=== PATIENT | male | born 1990 | race Caucasian/White ===

== ENCOUNTER 2016-12-12 11:51 | Emergency (ER) | payer OTHER ==
[2016-12-12] MEDS ORDERED: ONDANSETRON PF 4 MG/2 ML VIAL. IV ONE (12:45)
[2016-12-12] MEDS ORDERED: FAMOTIDINE 20 MG TABLET PO ONE (12:45)
[2016-12-12 12:48] LABS: BASO % 0 % (0-3); EOS % 0 % (0-3); HEMATOCRIT 45.5 % (39.0-53.0); HEMOGLOBIN 15.6 g/dL (13.0-17.5); LYMPH % 10 % (24-48); MEAN CORPUSCULAR HEMOGLOBIN 29 pg (25-35); MEAN CORPUSCULAR HGB CONC 34 g/dL (31-37); MEAN CORPUSCULAR VOLUME 84 fL (79-100); MONO # 0.5 x10^3/uL (0.0-1.1); MONO % 6 % (0-9); NEUT # 7.9 x10^3uL (1.8-7.7); NEUT % 84 % (31-73); PLATELET COUNT 272 x10^3/uL (140-400); RED BLOOD COUNT 5.43 x10^6/uL (4.30-5.70); WHITE BLOOD COUNT 9.4 x10^3/uL (4.0-11.0)
--- NOTE | 2016-12-12 12:50 | PHYS DOC ---
General Chief Complaint: NAUSEA/VOMITING/DIARRHEA Stated Complaint: "I have a hangover" Time Seen by MD: 12:19 Source: patient Exam Limitations: no limitations Problems: History of Present Illness Initial Comments Patient is a 26-year-old male who comes to the ED complaining of hangover. Patient states that he drank "my usual amount" of mixed drinks last night as well as smoking and unknown quantity of marijuana. He says his last cocktail was at 11 PM. He says he awoke this morning with nausea and vomiting and states he vomited approximately 30 times. No blood in his emesis, no diarrhea. He's got generalized abdominal discomfort without focality, no fever chills sweats or myalgias. No travel or known bad food exposure, but he also has a headache without focal neurologic deficits described as global moderate to severe and throbbing. He denies head trauma. Timing/Duration: 4-6 hours Severity: severe Modifying Factors: improves with other Associated Symptoms: headaches, malaise, nausea/vomiting Allergies: Coded Allergies: No Known Drug Allergies (Unverified , 12/12/16) Past Medical History Medical History: no pertinent history Surgical History: noncontributory Social History Smoker: non-smoker Alcohol: occasionally Drugs: marijuana Review of Systems Constitutional: denies chills, denies diaphoresis, denies fever, malaise Respiratory: denies cough, denies shortness of breath, denies wheezing Cardiovascular: denies chest pain, denies palpitations, denies syncope Gastrointestinal: see HPI Genitourinary: denies dysuria, denies frequency, denies hematuria Musculoskeletal: denies back pain, denies joint swelling, denies neck pain Psychiatric/Neurological: headache, denies numbness, denies paresthesia Physical Exam General Appearance: mild distress Eyes: bilateral eye normal inspection, bilateral eye PERRL, bilateral eye EOMI Ear, Nose, Throat: hearing grossly normal, normal ENT inspection, normal pharynx (dry membranes) Neck: non-tender, supple Respiratory: normal breath sounds, no respiratory distress Cardiovascular: normal peripheral pulses, regular rate, rhythm Gastrointestinal: normal bowel sounds, soft (nondistended, diffuse tenderness without rebound guarding or mass negative McBurney and negative Dickson) Back: no CVA tenderness, no vertebral tenderness Extremities: non-tender, normal inspection Neurologic/Psychiatric: frame catcher II-XII nml as tested, no motor/sensory deficits, oriented x 3, other (sluggish and lethargic) Skin: pallor (poor turgor) Orders, Labs, Meds EKG: Normal sinus rhythm 70 bpm, nonspecific ST-T changes no STEMI. Interpreted by me 1430: Notified by RN that pt became restless demanding immediate discharge. I notified her that some results still pending but that pt could sign out AMA if he chose. RN signed pt out AMA. IMPRESSIONS: Abdominal pain with nausea and vomiting Marijuana abuse Against medical advise Departure Disposition: 07 AGAINST MEDICAL ADVICE Condition: STABLE Patient Instructions: Discharge Against Medical Advice Additional Instructions: Pt left AMA signed out by DIANNE TURPIN DO Dec 12, 2016 12:50
[2016-12-12] MEDS ORDERED: MVI, ADULT NO.4 WITH VIT K 10 ML, FOLIC ACID SYRINGE for ER 1 MG, THIAMINE 100 MG in IV... IV SCH ×4 (13:00)
[2016-12-12 13:02] LABS: ALBUMIN 4.2 g/dL (3.4-5.0); CALCIUM 8.9 mg/dL (8.5-10.1); CREATININE 1.2 mg/dL (0.7-1.3); DIRECT BILIRUBIN 0.3 mg/dL (0.0-0.2); GFR 72.6; MAGNESIUM 1.7 mg/dL (1.8-2.4); POTASSIUM 4.2 mmol/L (3.5-5.1); TOTAL BILIRUBIN 1.4 mg/dL (0.2-1.0); TOTAL PROTEIN 7.9 g/dL (6.4-8.2)
--- NOTE | 2016-12-12 13:27 | EKG ---
[address] [address] Test Date: 2016-12-12 Test Time: 12:38:43 Pat Name: MUSTAPHA WADE Department: Room: Gender: M Media Relations Intern: TRINY : 1990 Requested By: DIANNE KAYE Order Number: [id number] Reading MD: Jacob Santacruz Measurements Intervals [place] Rate: 70 P: 36 CT: 164 QRS: 26 QRSD: 92 T: 41 QT: 354 QTc: 385 Interpretive Statements SINUS RHYTHM Electronically Signed On 12-17-2016 8:23:34 CDT by Jacob Santacruz
[2016-12-12] MEDS ORDERED: IV NORMAL SALINE 1,000ML 1,000 ML IV SCH (14:00)
[2016-12-12 14:07] LABS: AMPHETAMINE/METHAMPHETAMINE NEG (NEG); BARBITURATES NEG (NEG); BENZODIAZEPINES NEG (NEG); CANNABINOIDS POS (NEG); COCAINE NEG (NEG); METHADONE NEG (NEG); OPIATES NEG (NEG); PHENCYCLIDINE NEG (NEG)
[2016-12-12 14:14] LABS: BILIRUBIN,URINE NEG (NEG); CLARITY,URINE CLEAR; COLOR,URINE AMBER; GLUCOSE,URINE NEG (NEG)
[2016-12-12 14:15] VITALS: BP 123/75
[2016-12-12 14:15] LABS: BACTERIA,URINE 0 /HPF (0-FEW); NITRITE,URINE NEG (NEG); SQUAMOUS EPITHELIAL CELL,UR OCC /LPF; UROBILINOGEN,URINE 1 mg/dL (0.2 mg/dL); WBC,URINE OCC /HPF (0-4)
== END 2016-12-12 14:15 | disposition left against medical advice (07) ==
LOC: ER 11:51
DX: R10.84 Generalized abdominal pain (principal); R11.2 Nausea with vomiting, unspecified; F12.10 Cannabis abuse, uncomplicated
CPT/HCPCS: 36415; 80048; 80076; 80305; 80320; 81001; 82550; 83690; 83735; 84484; 85027; 93005; 96365; 96375; 99285; J2405; G0480; G0481; J7030